=== PATIENT | male | born 1965 | race Caucasian/White ===

== ENCOUNTER 2016-12-06 15:46 | Emergency (ER) | payer SELFPAY ==
[~2016-12-06] VITALS: Ht 172.7 cm; Wt 96.2 kg
[2016-12-06 15:46] VITALS: BP 141/104
== END 2016-12-06 16:42 | disposition home or self-care (01) ==
LOC: ER 15:48
DX: M54.2 Cervicalgia (principal); M25.522 Pain in left elbow; V43.92XA Unspecified car occupant injured in collision with other type car in traffic accident, initial encounter; Y93.89 Activity, other specified; Y92.488 Other paved roadways as the place of occurrence of the external cause; Y99.8 Other external cause status
CPT/HCPCS: 99283; A4606; Z7610